=== PATIENT | female | born 1950 | race Caucasian/White ===

== ENCOUNTER 2018-05-08 18:36 | Observation (INO) ==
[2018-05-08] MEDS ORDERED: 0.9 % Sodium Chloride 1,000 ML IVC ONE (19:15)
[2018-05-08] MEDS ORDERED: methylPREDNISolone 125 MG/2 ML VIAL IVP ONE (19:15)
[2018-05-08] MEDS ORDERED: Ipratropium/Albuterol Neb 3 ML IH ONE (19:15)
--- NOTE | 2018-05-08 19:19 | Emergency Department Note ---
Disposition Clinical Impression: Acute exacerbation of chronic obstructive airways disease, Bronchospasm, Failure of outpatient treatment Disposition: Admitted As Inpatient Condition: Fair Referrals: Mayra Chino MD [Primary Care Provider] - Forms: ED Satisfaction Letter Time of Disposition: 20:27 SOB HPI - General Chief Complaint: ED Shortness of Breath/Dyspnea Stated Complaint: SOB Time Seen by Provider: 05/08/18 19:07 Source: patient Mode of arrival: private vehicle Limitations: no limitations Nursing Notes Reviewed: Yes Vital Signs Reviewed: Yes - History of Present Illness Pt Subjective Complaint: shortness of breath Onset (ago): week(s) (Little over a week) Context: recent illness (Patient treated herself for what she thought was bronchitis week ago. She took a Z-Chris and Medrol Dosepak. She says she had a little bit better and then things got worse again. Now she short of breath and wheezing and he keeps getting worse.) Severity: severe Consistency/Duration: gradually worsening Improves with: bronchodilators (Only briefly) Worsens with: exertion, coughing Known history of: COPD (And continues to smoke) Associated symptoms: Reports: cough, wheezing. Denies: chest pain, fever, sputum production Cough present: Yes Cough Description: Non-Productive Cough Frequency: Intermittent - Related Data Home Medications Medication Instructions Recorded Confirmed Albuterol Inhaler 2 puff IN Q4H PRN 11/05/15 05/08/18 Roflumilast [Daliresp] 500 mg PO DAILY 11/05/15 05/08/18 Singulair 10 mg PO DAILY 11/05/15 05/08/18 Symbicort 160/4.5 1 puff IH BID 11/05/15 05/08/18 Omeprazole 20 mg PO DAILY 10/30/16 05/08/18 Previous Rx's Medication Instructions Recorded Albuterol Sulfate [Albuterol 2 puff IH QID 2 Days inhaler 11/05/15 Inhaler] Ipratropium Neb [Atrovent Neb] 0.5 mg IH Q6HR #30 vial.neb 02/15/16 Allergies Allergy/AdvReac Type Severity Reaction Status Date / Time No Known Allergies Allergy Verified 05/08/18 18:46 All systems ED: reviewed and negative except as stated. Constitutional: Denies: fever, chills ENT ED: Reports: congestion (Mild congestion). Denies: ear pain, throat pain Cardiovascular: Denies: chest pain, palpitations Respiratory: Reports: cough, dyspnea, wheezes Gastrointestinal: Denies: abdominal pain, nausea, vomiting, diarrhea Musculoskeletal: Denies: back pain Integumentary: Denies: rash Neurological: Denies: headache Past Medical History - Past Medical History Attestation: Yes The following information was validated with the patient. Source: patient, old records reviewed, nursing notes reviewed Medical history: Reports: asthma, COPD, GERD Psychiatric history: Reports: no psych history COAGULATOR history: Reports: bilateral tubal ligation - Social History Smoking Status: Current every day smoker Smokeless Tobacco Status: No Alcohol use: Reports: none Drug use: Reports: none Physical Exam - General Limitations: no limitations General appearance: alert, in distress (Tachypneic with audible wheezing that I hear from the foot of the bed) - Head Head exam: atraumatic, normocephalic, normal inspection - Eye Eye exam: Present: normal appearance, PERRL, EOMI. Absent: scleral icterus, conjunctival injection - ENT ENT exam: normal exam, normal oropharynx, mucous membranes moist, TM's normal bilaterally, normal external ear exam - Neck Neck exam: Present: normal inspection, full ROM, trachea midline. Absent: meningismus - Chest Chest inspection: Present: normal inspection, symmetric chest wall rise. Absent: tenderness - Respiratory Respiratory exam: Present: wheezes (Diffuse wheezing throughout and nonfocal distribution.), prolonged expiratory phase. Absent: accessory muscle use - Cardiovascular Cardiovascular exam: Present: regular rate, normal rhythm, normal heart sounds - Abdominal Exam Abdominal exam: Present: soft, Non-Tender, normal bowel sounds - Extremities Exam Extremities exam: Present: normal inspection. Absent: pedal edema - Neurological Exam Neurological exam: Present: alert, oriented X3 - Psychiatric Psychiatric exam: Present: normal affect, normal mood - Skin Skin exam: Present: warm, dry. Absent: rash Course Course Narrative: Patient presents with complaint of shortness of breath. Antibiotics and steroids a week ago for what she thought was a bronchitis. Finished those a couple days ago and really has not gotten any relief. She short of breath with exertion at home. Lots of coughing and wheezing despite using her home aerosol machine. She arrives emergency Department with a low O2 sat. She is not on home oxygen. This description is a failure of outpatient treatment and a patient who has an oxygen requirement. She is going to need to be admitted to the hospital. I will get short of breath workup going and get her some breathing treatments and steroids. Disposition will be based on diagnostic results and reevaluation. - Reevaluation(s) Reevaluation #1: Patient does feel better after breathing treatments. She still has wheezing. I feel that she is related to the hospital because she is failed outpatient treatment and has an oxygen requirement. I will talk to the hospitalist and arrange admission. Time: 20:26 Vital Signs Temperature 98.5 F 05/08/18 18:37 Pulse Rate 92 05/08/18 18:37 Respiratory Rate 30 05/08/18 18:37 Blood Pressure 140/80 05/08/18 18:37 O2 Sat by Pulse Oximetry 99 05/08/18 18:37 Temperature 98.5 F 05/08/18 18:56 Pulse Rate 90 05/08/18 19:58 Respiratory Rate 24 05/08/18 19:58 Blood Pressure 140/78 05/08/18 19:58 O2 Sat by Pulse Oximetry 97 05/08/18 19:58 Oxygen Delivery Oxygen Delivery Nasal Cannula Shortness of Breath/Dyspnea - Medical Records Medical records reviewed: Yes I reviewed the patient's medical records. - Lab Data Lab results reviewed: Yes I reviewed the patient's lab results. Result diagrams: 05/08/18 19:45 05/08/18 19:45 Lab Results 05/08/18 05/08/18 05/08/18 Range/Units 19:45 19:45 19:45 WBC 14.2 H (4.3-11.1) K/mcL RBC 4.33 (3.82-4.97) M/mcL Hgb 13.1 (11.5-15.4) g/dL Hct 39.4 (35.3-44.9) % MCV 91.0 (83.0-100.0) fL MCH 30.3 (28.0-33.3) pg MCHC 33.2 (31.6-35.5) g/dL RDW 13.2 (11.5-14.5) % Plt Count 260 (140-400) K/mcL MPV 9.3 L (9.4-12.4) fL Immature Gran % 0.4 (0-4) % Seg Neutrophils % 53.4 % Lymphocytes % 31.9 % Monocytes % 9.9 % Eosinophils % 3.7 % Basophils % 0.7 % Neutrophils # 7.6 (1.6-8.9) K/mcL Lymphocytes # 4.5 (0.6-4.6) K/mcL Monocytes # 1.4 H (0.0-1.3) K/mcL Eosinophils # 0.5 (0.0-0.6) K/mcL Basophils # 0.1 (0.0-0.2) K/mcL Sample Site ABG pH (7.32-7.45) pH Units ABG pCO2 (35-45) mmHg ABG pO2 (85-104) mmHg ABG HCO3 (21-27) mEq/L ABG Total CO2 (20-26) mEq/L ABG O2 Saturation (95-98) % ABG Base Excess (-2 to 3) mEq/L Keo Test O2 Delivery Device Inspired O2 (1-15=lpm qf29-640=%) Sodium 138 (136-145) mEq/L Potassium 4.0 (3.5-5.1) mEq/L Chloride 103 (98-107) mEq/L Carbon Dioxide 28 (23-29) mEq/L BUN 13 (8-23) mg/dL Creatinine 0.72 (0.60-1.20) mg/dL Est GFR ( Amer) > 60 (> 60) Est GFR (Non-Af Amer) > 60 (> 60) BUN/Creatinine Ratio 18 (6-26) Glucose 88 (70-105) mg/dL Calculated Osmolality 286 (280-300) Lactic Acid 1.3 (0.5-2.2) mmol/L Calcium 8.9 (8.6-10.3) mg/dL Troponin I < 0.03 (< 0.04) ng/mL B-Natriuretic Peptide (Less than 100) pg/mL 05/08/18 05/08/18 Range/Units 19:45 19:46 WBC (4.3-11.1) K/mcL RBC (3.82-4.97) M/mcL Hgb (11.5-15.4) g/dL Hct (35.3-44.9) % MCV (83.0-100.0) fL MCH (28.0-33.3) pg MCHC (31.6-35.5) g/dL RDW (11.5-14.5) % Plt Count (140-400) K/mcL MPV (9.4-12.4) fL Immature Gran % (0-4) % Seg Neutrophils % % Lymphocytes % % Monocytes % % Eosinophils % % Basophils % % Neutrophils # (1.6-8.9) K/mcL Lymphocytes # (0.6-4.6) K/mcL Monocytes # (0.0-1.3) K/mcL Eosinophils # (0.0-0.6) K/mcL Basophils # (0.0-0.2) K/mcL Sample Site R Radial ABG pH 7.39 (7.32-7.45) pH Units ABG pCO2 45 (35-45) mmHg ABG pO2 97 (85-104) mmHg ABG HCO3 27 (21-27) mEq/L ABG Total CO2 28 H (20-26) mEq/L ABG O2 Saturation 97 (95-98) % ABG Base Excess 2 (-2 to 3) mEq/L Keo Test Positive O2 Delivery Device Cannula Inspired O2 2.0 (1-15=lpm fn31-415=%) Sodium (136-145) mEq/L Potassium (3.5-5.1) mEq/L Chloride (98-107) mEq/L Carbon Dioxide (23-29) mEq/L BUN (8-23) mg/dL Creatinine (0.60-1.20) mg/dL Est GFR ( Amer) (> 60) Est GFR (Non-Af Amer) (> 60) BUN/Creatinine Ratio (6-26) Glucose (70-105) mg/dL Calculated Osmolality (280-300) Lactic Acid (0.5-2.2) mmol/L Calcium (8.6-10.3) mg/dL Troponin I (< 0.04) ng/mL B-Natriuretic Peptide 24 (Less than 100) pg/mL - Radiology Data Radiology results reviewed: Yes I reviewed the patient's radiology results. - EKG Data EKG attestation: Yes I reviewed and interpreted this EKG. EKG results narrative: Twelve-lead EKG performed at 1927 ordered reviewed and interpreted by ED physician shows sinus rhythm at a rate of 82. Normal axis. Good R progression across precordium. No acute ischemic changes. Intervals are within normal limits.
[2018-05-08 19:49] LABS: ABG Base Excess 2 mEq/L (-2 to 3); ABG HCO3 27 mEq/L (21-27); ABG Oxygen Saturation 97 % (95-98); ABG PCO2 45 mmHg (35-45); ABG PH 7.39 pH Units (7.32-7.45); ABG PO2 97 mmHg (85-104); ABG TCO2 28 mEq/L (20-26)
[2018-05-08 19:52] LABS: Basophils # 0.1 K/mcL (0.0-0.2); Basophils % 0.7 %; Eosinophils # 0.5 K/mcL (0.0-0.6); Eosinophils % 3.7 %; Hematocrit 39.4 % (35.3-44.9); Hemoglobin 13.1 g/dL (11.5-15.4); Immature Granulocytes % 0.4 % (0-4); Lymphocytes # 4.5 K/mcL (0.6-4.6); Lymphocytes % 31.9 %; Mean Corpuscular HGB Conc 33.2 g/dL (31.6-35.5); Mean Corpuscular Hemoglobin 30.3 pg (28.0-33.3); Mean Platelet Volume 9.3 fL (9.4-12.4); Monocytes # 1.4 K/mcL (0.0-1.3); Monocytes % 9.9 %; Neutrophils # 7.6 K/mcL (1.6-8.9); Platelet Count 260 K/mcL (140-400); Red Blood Count 4.33 M/mcL (3.82-4.97); Red Cell Distribution Width 13.2 % (11.5-14.5); Segmented Neutrophils % 53.4 %
[2018-05-08 20:11] LABS: BUN/Creatinine Ratio 18 (6-26); Blood Urea Nitrogen 13 mg/dL (8-23); Calcium 8.9 mg/dL (8.6-10.3); Carbon Dioxide 28 mEq/L (23-29); Chloride 103 mEq/L (98-107); Glucose 88 mg/dL (70-105); Osmolality,Calculated 286 (280-300); Sodium 138 mEq/L (136-145); eGFR For Non-African Americans > 60 (> 60)
[2018-05-08 20:12] LABS: Troponin I < 0.03 ng/mL (< 0.04)
[2018-05-08] MEDS ORDERED: MethylPREDNISolone 40 MG/ML VIAL IVP ONE (21:26)
[2018-05-08] MEDS ORDERED: Naloxone 0.4 MG/ML INJ IVP PRN (21:26)
[2018-05-08] MEDS: Ipratropium/Albuterol Neb 3 ML IH SCH ×3 (21:48→22:26)
[2018-05-08] MEDS ORDERED: Budesonide/Formoterol 160/4.5 1 PUFF INH IH SCH (22:00)
[2018-05-09] MEDS: 0.9 % Sodium Chloride 1,000 ML IVC SCH ×2 (00:10→09:22)
[2018-05-09] MEDS: methylPREDNISolone 125 MG/2 ML VIAL IVP SCH ×3 (03:49→18:00)
[2018-05-09] MEDS ORDERED: DALIRESP 500 MCG PO SCH (09:00)
--- NOTE | 2018-05-09 09:50 | Internal Med History&Physical ---
Date of Encounter: 05/09/18 Time of Encounter: 09:15 Assessment and Plan (1) Acute exacerbation of chronic obstructive airways disease Current visit: Yes Status: Acute She was started on IV steroids in emergency room. Chest CT will be done to further evaluate. Internal Medicine - H&P: HPI Chief complaint: Cough and dyspnea Admitted From: Emergency Dept Plans for Post Hospital Care: Home History of present illness: Ms. Paiz is a 67 year old female who came to emergency room stating she had cough onset approximately one week earlier. It was productive of scant amount of yellow sputum. She denies fevers chills or hemoptysis. She developed dyspnea approximately 2-3 days later which waxed and waned over the next few days. She took a Z-Chris she had on hand May 02- with little improvement. She came to the emergency room and was evaluated and felt to have exacerbation of COPD. She was admitted to [facility] floor for ongoing care needs. Her respiratory history is significant for smoking since age 15 up to one pack per day. She reports PFTs done approximately 2010 showed COPD. She does not use home oxygen and has not been tested for sleep apnea. Past Med Surg Social Fam HX - Past Medical History Medical history: asthma, COPD, GERD Psychiatric history: no psych history - Past Surgical History Additional surgical history: Tubal ligation, Gum surgery 6 months ago - Social History Smoking Status: Current every day smoker Smokeless Tobacco Status: No Alcohol use: none Drug use: none Internal Medicine - H&P: Meds Albuterol Inhaler 2 puff IN Q4H PRN 11/05/15 [History] Albuterol Sulfate [Albuterol Inhaler] 2 puff IH QID 2 Days inhaler 11/05/15 [Rx] Roflumilast [Daliresp] 500 mg PO DAILY 11/05/15 [History] Singulair 10 mg PO DAILY 11/05/15 [History] Symbicort 160/4.5 1 puff IH BID 11/05/15 [History] Ipratropium Neb [Atrovent Neb] 0.5 mg IH Q6HR #30 vial.neb 02/15/16 [Rx] Omeprazole 20 mg PO DAILY 10/30/16 [History] Allergy/AdvReac Type Severity Reaction Status Date / Time No Known Allergies Allergy Verified 05/08/18 18:46 All Systems PM: A 10-system review of systems was performed and is negative for pertinent findings except as documented above in the HPI. Review of systems: Gen.: She states her weight has increased proximates 7 pounds in the past year Cardiovascular: She denies hypertension MS heart failure angina DVT or pulmonary embolus. She states an EST 2015 showed no ischemia. Respiratory: As per history of present illness GI: She denies disorders of her liver gallbladder or exocrine pancreas : She denies hematuria dysuria or kidney stones Neurologic: She denies large distribution strokes or seizures. Endocrine: She denies diabetes thyroid disease or hyperlipidemia Hematology/oncology: She denies blood disorders cancers or anemia Psychiatric: She has seasonal affective disorder. She denies other mental health diagnoses. [place] skeletal: She has DJD but denies gout or other bone joint or muscle diso rders. - Constitutional Vitals: Temp Pulse Resp BP Pulse Ox 98.2 F 86 17 120/69 98 05/09/18 06:57 05/09/18 06:57 05/09/18 06:57 05/09/18 06:57 05/09/18 09:18 Exam: Gen.: She is a well-developed well-nourished female lying in bed who appears slightly dyspneic HEENT: Head is atraumatic and normocephalic. Eyes: EOMI. There is no scleral icterus. Mouth: Mucosa is moist. Neck: Supple and nontender. There is no thyromegaly or adenopathy noted. Heart: Regular without murmurs gallops or ectopics. Rate is approximate 96/m. Lungs: She has prolonged expiratory phase and mild diffuse wheezing. Abdomen: Soft and nontender. No masses or guarding are noted. Extremities: There is no cyanosis edema or clubbing noted. Dorsalis pedis and posterior tibial pulses are 1-2 over 2 bilaterally. Neurologic: Mental status: She is talkative and a good historian. Cranial nerves: Smile is symmetric. Forehead wrinkles bilaterally. Tongue protrudes midline. EOMI. Motor: There is no pronator drift. Cerebellar: Finger to nose is intact bilaterally. Skin: Warm and dry Internal Med - H&P Results - Labs CBC & Chem 7: 05/08/18 19:45 05/08/18 19:45 Labs: Short CBC 05/08/18 Range/Units 19:45 WBC 14.2 H (4.3-11.1) K/mcL Hgb 13.1 (11.5-15.4) g/dL Hct 39.4 (35.3-44.9) % Plt Count 260 (140-400) K/mcL Neutrophils # 7.6 (1.6-8.9) K/mcL BMP 05/08/18 19:45 Sodium 138 Potassium 4.0 Chloride 103 Carbon Dioxide 28 BUN 13 Creatinine 0.72 Glucose 88 Calcium 8.9 Cardiac Enzymes 05/08/18 Range/Units 19:45 Troponin I < 0.03 (< 0.04) ng/mL - ABG Interpretation ABG results: 05/08/18 19:46 ABG pH 7.39 ABG pCO2 45 ABG pO2 97 ABG HCO3 27 ABG Total CO2 28 H ABG O2 Saturation 97 ABG Base Excess 2 - Impressions ITS Impressions Chest X-Ray 05/08/18 19:15 IMPRESSION: No acute pulmonary process. D/ / Daniel Douglas / Daniel Douglas Interpreting Provider: Daniel Douglas
[2018-05-09] MEDS ORDERED: Budesonide/Formoterol 160/4.5 1 PUFF INH IH SCH (10:00)
[2018-05-09] MEDS: Albuterol 2.5 MG/3 ML NEBULIZER IH PRN ×3 (10:19→22:01)
[2018-05-09] MEDS: Tiotropium 18 MCG inhalation IH SCH (10:19)
[2018-05-09] MEDS: Budesonide/Formoterol 160/4.5 1 PUFF INH IH SCH (22:10)
[2018-05-10] MEDS: methylPREDNISolone 125 MG/2 ML VIAL IVP SCH (03:30)
[2018-05-10 06:50] VITALS: BP 116/70
[2018-05-10 06:58] LABS: Hematocrit 36.8 % (35.3-44.9); Hemoglobin 12.1 g/dL (11.5-15.4); Mean Corpuscular HGB Conc 32.9 g/dL (31.6-35.5); Mean Corpuscular Hemoglobin 30.3 pg (28.0-33.3); Mean Platelet Volume 9.7 fL (9.4-12.4); Platelet Count 254 K/mcL (140-400); Red Cell Distribution Width 13.5 % (11.5-14.5)
[2018-05-10 07:39] LABS: Large Platelets Present (Not Present); Neutrophils # 24.4 K/mcL (1.6-8.9); Platelet Estimate Normal (Normal); Toxic Granulation Present (Not Present)
--- NOTE | 2018-05-10 09:25 | Discharge Summary ---
Orders not resulted at time of discharge: Pending orders 05/08/18 19:15 ECG 12 lead ECG [ECG] Stat 05/08/18 19:45 Culture,Blood [BC] Stat Date of Encounter: 05/10/18 Time of Encounter: 09:15 - Discharge Diagnosis (1) Acute exacerbation of chronic obstructive airways disease Priority: Primary Status: Acute Hospital course: Ms. Paiz is a 67 year old female who came to emergency room stating she had cough onset approximately one week earlier. It was productive of scant amount of yellow sputum. She denies fevers chills or hemoptysis. She developed dyspnea approximately 2-3 days later which waxed and waned over the next few days. She took a Z-Chris she had on hand May 02 with little improvement. She came to the emergency room and was evaluated and felt to have exacerbation of COPD. She was admitted to [facility] floor for ongoing care needs. Initial orders were written by the emergency room physician. I saw her on May 09 and performed the history and physical. She was given IV steroids in emergency room. I ordered chest CT to further evaluate. The CT showed no acute process. There was mild central lobular emphysema changes and 2 small nodules in the right upper lobe unchanged from 2014. Follow-up lab work on May 10 showed WBC increased to 25.4 with 92 % segs and 4% bands. She remained afebrile however and felt improved overall. She wished to be discharged home. She will receive antibiotics and probiotic for 5 additional days at discharge. Room air oximetry be checked on 6 minute walk prior to discharge. I strongly encouraged her to become a nonsmoker. She will follow with her PCP Dr. Chino within 1 week. - Time Spent with Patient Total time spent providing and/or coordinating discharge services: - Discharge Medications Prescriptions: Amoxicillin/Clavulanate [Augmentin] 875 mg PO BIDWM #10 tablet Lactobacillus [Culturelle] 1 each PO BID #10 cap.sprink Home Medications: Albuterol Inhaler 2 puff IN Q4H PRN 11/05/15 [History] Albuterol Sulfate [Albuterol Inhaler] 2 puff IH QID 2 Days inhaler 11/05/15 [Rx] Roflumilast [Daliresp] 500 mg PO DAILY 11/05/15 [History] Singulair 10 mg PO DAILY 11/05/15 [History] Symbicort 160/4.5 1 puff IH BID 11/05/15 [History] Ipratropium Neb [Atrovent Neb] 0.5 mg IH Q6HR #30 vial.neb 02/15/16 [Rx] Omeprazole 20 mg PO DAILY 10/30/16 [History] Amoxicillin/Clavulanate [Augmentin] 875 mg PO BIDWM #10 tablet 05/10/18 [Rx] Lactobacillus [Culturelle] 1 each PO BID #10 cap.sprink 05/10/18 [Rx] Allergies/Adverse Reactions: Allergy/AdvReac Type Severity Reaction Status Date / Time No Known Allergies Allergy Verified 05/08/18 18:46 Date of admission: 05/08/18 20:38 Primary care physician: Mayra Chino - Constitutional Vitals: Temp Pulse Resp BP Pulse Ox 98.0 F 86 17 116/70 96 05/10/18 06:46 05/10/18 06:46 05/10/18 06:46 05/10/18 06:46 05/10/18 06:46 - Patient Status Disposition: Home, Self-Care Condition: Fair - Discharge Instructions Follow Up With: Mayra Chino MD [Primary Care Provider] - 1 week - Diet and Activity Activity: resume usual activities as tolerated Diet: advance to your usual diet
[2018-05-10] MEDS: Budesonide/Formoterol 160/4.5 1 PUFF INH IH SCH (09:47)
[2018-05-10] MEDS: Tiotropium 18 MCG inhalation IH SCH (09:47)
[2018-05-10] MEDS: Albuterol 2.5 MG/3 ML NEBULIZER IH PRN (09:48)
--- NOTE | 2018-05-11 15:28 | Electrocardiograph Report ---
[address] [place], [place] [address] Test Date: 2018-05-08 Pat Name: Betzaida Paiz Department: [id number] Room: [facility] Gender: F Spacer Type Bar And Segment: Elena : 1950 Requested By: Nilo José Order Number: [id number] Reading MD: Shanda Marcos Measurements Intervals [place] Rate: 82 P: 74 AK: 127 QRS: 57 QRSD: 74 T: 55 QT: 355 QTc: 394 Interpretive Statements SINUS RHYTHM Electronically Signed On 05-11-2018 15:26:15 EST by Shanda Marcos
== END 2018-05-10 11:41 | disposition home or self-care (01) ==
LOC: INPPIK 18:36 → EMEROOPIK 18:36 → INPPIK 21:09
PROVIDERS: ADMIT Emergency Medicine; ATTEND Internal Medicine

== ENCOUNTER 2018-09-16 20:17 | Observation (INO) ==
--- NOTE | 2018-09-16 20:27 | Emergency Department Note ---
Disposition Clinical Impression: Acute exacerbation of chronic obstructive airways disease Disposition: Admitted As Inpatient Condition: Good Referrals: Mayra Chino MD [Primary Care Provider] - Forms: ED Satisfaction Letter Time of Disposition: 22:26 SOB HPI - General Chief Complaint: ED Shortness of Breath/Dyspnea Stated Complaint: SOB Time Seen by Provider: 09/16/18 20:27 Source: patient Mode of arrival: ambulatory Limitations: no limitations Nursing Notes Reviewed: Yes Vital Signs Reviewed: Yes - History of Present Illness 67-year-old female who presents today with a COPD exacerbation. States she has had shortness of breath for about a week now. She says low-grade fever at home. Nonproductive cough. History of COPD. She has not been on steroids or antibiotics recently. She has had a be hospitalized in the past for her breathing. Pt Subjective Complaint: shortness of breath - Related Data Home Medications Medication Instructions Recorded Confirmed Albuterol Inhaler 2 puff IN Q4H PRN 11/05/15 05/08/18 Roflumilast [Daliresp] 500 mg PO DAILY 11/05/15 05/08/18 Singulair 10 mg PO DAILY 11/05/15 05/08/18 Symbicort 160/4.5 1 puff IH BID 11/05/15 05/08/18 Omeprazole 20 mg PO DAILY 10/30/16 05/08/18 Previous Rx's Medication Instructions Recorded Albuterol Sulfate [Albuterol 2 puff IH QID 2 Days inhaler 11/05/15 Inhaler] Ipratropium Neb [Atrovent Neb] 0.5 mg IH Q6HR #30 vial.neb 02/15/16 Amoxicillin/Clavulanate [Augmentin] 875 mg PO BIDWM #10 tablet 05/10/18 Lactobacillus [Culturelle] 1 each PO BID #10 cap.sprink 05/10/18 Allergies Allergy/AdvReac Type Severity Reaction Status Date / Time No Known Allergies Allergy Verified 05/08/18 18:46 Review of Systems: All other systems are negative except as noted/marked Chart generated with voice recognition software Nursing notes reviewed Old records reviewed Past Medical History - Past Medical History Attestation: Yes The following information was validated with the patient. 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 - Social History Smoking Status: Current every day smoker Smokeless Tobacco Status: No Alcohol use: Reports: none Drug use: Reports: none Physical Exam General: Mild distress, VSS Head: normocephalic, atraumatic Eyes: EOMI, PERRLA mouth: moist mucous membranes Neck: NO CLA, Supple Chest wall: normal rise, no crepitus, no deformity noted Lungs: Diminished lung sounds with wheezing, accessory muscle use for breathing Heart: RRR, no murmur Abd: soft, nontender, BS normal : deferred MSK: strength equal in all four extremities Ext: moves all four extremities, no obvious deformities Skin: cap refill normal, warm, dry neuro : CN2-12 grossly intact, A&Ox3 Psych: normal affect, not anxious - General General appearance: alert Course Vital Signs Temperature 98.5 F 09/16/18 20:19 Pulse Rate 98 09/16/18 20:19 Respiratory Rate 20 09/16/18 20:19 Blood Pressure 141/80 09/16/18 20:19 O2 Sat by Pulse Oximetry 95 09/16/18 20:19 Temperature 98.5 F 09/16/18 20:19 Pulse Rate 104 09/16/18 22:02 Respiratory Rate 24 09/16/18 22:02 Blood Pressure 130/64 09/16/18 22:02 O2 Sat by Pulse Oximetry 93 09/16/18 22:02 Oxygen Delivery Oxygen Delivery Nasal Cannula Shortness of Breath/Dyspnea - MDM Narrative Medical decision making narrative: 67-year-old female who presents today with a COPD exacerbation. She had a DuoNeb and 2 albuterol is on arrival was some IV fluids and steroids. She state s she is feeling a little bit better at this time. She still looks like short, hard to breathe. I ordered some magnesium for her as well as 2 more albuterol treatments. A chest x-ray is clear her lab work is unremarkable. Patient does not appear in any distress other than just having increased work of breathing at this time. 2199 after repeat breathing treatments and some magnesium patient looks like she is feeling a little bit better however she still requiring oxygen to maintain her sats at this time. 2229 patient still requiring oxygen and slightly tachycardic. It still looks somewhat uncomfortable with her breathing. At this point think it would be in her best interest to be admitted overnight for pulmonary toilet. I spoke with Dr. Bojorquez who accepted the patient. - Medical Records Medical records reviewed: Yes I reviewed the patient's medical records. - Lab Data Lab results reviewed: Yes I reviewed the patient's lab results. Result diagrams: 09/16/18 21:01 09/16/18 21: Lab Results 09/16/18 09/16/18 09/16/18 Range/Units 21: 21: 21: WBC 8.7 (4.3-11.1) K/mcL RBC 4.70 (3.82-4.97) M/mcL Hgb 14.1 (11.5-15.4) g/dL Hct 42.8 (35.3-44.9) % MCV 91.1 (83.0-100.0) fL MCH 30.0 (28.0-33.3) pg MCHC 32.9 (31.6-35.5) g/dL RDW 12.8 (11.5-14.5) % Plt Count 241 (140-400) K/mcL MPV 9.4 (9.4-12.4) fL Immature Gran % 0.2 (0-4) % Seg Neutrophils % 64.3 % Lymphocytes % 20.7 % Monocytes % 10.2 % Eosinophils % 3.6 % Basophils % 1.0 % Neutrophils # 5.6 (1.6-8.9) K/mcL Lymphocytes # 1.8 (0.6-4.6) K/mcL Monocytes # 0.9 (0.0-1.3) K/mcL Eosinophils # 0.3 (0.0-0.6) K/mcL Basophils # 0.1 (0.0-0.2) K/mcL PT 11.3 (9.4-12.1) Seconds INR 1.0 APTT 37.0 H (26.0-36.0) Seconds Sample Site ABG pH (7.32-7.45) pH Units ABG pCO2 (35-45) mmHg ABG pO2 (85-104) mmHg ABG HCO3 (21-27) mEq/L ABG Total CO2 (20-26) mEq/L ABG O2 Saturation (95-98) % ABG Base Excess (-2 to 3) mEq/L Keo Test O2 Delivery Device Inspired O2 (1-15=lpm [id number]=%) Sodium 137 (136-145) mEq/L Potassium 3.6 (3.5-5.1) mEq/L Chloride 103 (98-107) mEq/L Carbon Dioxide 28 (23-29) mEq/L BUN 21 (8-23) mg/dL Creatinine 0.80 (0.60-1.20) mg/dL Est GFR ( Amer) > 60 (> 60) Est GFR (Non-Af Amer) > 60 (> 60) BUN/Creatinine Ratio 26 (6-26) Glucose 82 (70-105) mg/dL Calculated Osmolality 286 (280-300) Lactic Acid (0.5-2.2) mmol/L Calcium 9.4 (8.6-10.3) mg/dL Magnesium 2.1 (1.6-2.6) mg/dL Troponin I < 0.03 (< 0.04) ng/mL B-Natriuretic Peptide (Less than 100) pg/mL 09/16/18 09/16/18 09/16/18 Range/Units 21:01 21:01 21:06 WBC (4.3-11.1) K/mcL RBC (3.82-4.97) M/mcL Hgb (11.5-15.4) g/dL Hct (35.3-44.9) % MCV (83.0-100.0) fL MCH (28.0-33.3) pg MCHC (31.6-35.5) g/dL RDW (11.5-14.5) % Plt Count (140-400) K/mcL MPV (9.4-12.4) fL Immature Gran % (0-4) % Seg Neutrophils % % Lymphocytes % % Monocytes % % Eosinophils % % Basophils % % Neutrophils # (1.6-8.9) K/mcL Lymphocytes # (0.6-4.6) K/mcL Monocytes # (0.0-1.3) K/mcL Eosinophils # (0.0-0.6) K/mcL Basophils # (0.0-0.2) K/mcL PT (9.4-12.1) Seconds INR APTT (26.0-36.0) Seconds Sample Site R Radial ABG pH 7.40 (7.32-7.45) pH Units ABG pCO2 40 (35-45) mmHg ABG pO2 78 L (85-104) mmHg ABG HCO3 25 (21-27) mEq/L ABG Total CO2 26 (20-26) mEq/L ABG O2 Saturation 95 (95-98) % ABG Base Excess 0 (-2 to 3) mEq/L Keo Test Positive O2 Delivery Device Cannula Inspired O2 2.0 (1-15=lpm [id number]=%) Sodium (136-145) mEq/L Potassium (3.5-5.1) mEq/L Chloride (98-107) mEq/L Carbon Dioxide (23-29) mEq/L BUN (8-23) mg/dL Creatinine (0.60-1.20) mg/dL Est GFR ( Amer) (> 60) Est GFR (Non-Af Amer) (> 60) BUN/Creatinine Ratio (6-26) Glucose (70-105) mg/dL Calculated Osmolality (280-300) Lactic Acid 0.9 (0.5-2.2) mmol/L Calcium (8.6-10.3) mg/dL Magnesium (1.6-2.6) mg/dL Troponin I (< 0.04) ng/mL B-Natriuretic Peptide 18 (Less than 100) pg/mL - Radiology Data Radiology results reviewed: Yes I reviewed the patient's radiology results. EXAMINATION: SINGLE XRAY VIEW OF THE CHEST 09/16/2018 9:13 pm COMPARISON: 05/08/2018 HISTORY: ORDERING SYSTEM PROVIDED HISTORY: dyspnea FINDINGS: Heart size and configuration are normal. The lungs are clear. No pneumothorax or pleural fluid. No acute bone finding. XR/XR chest 1V portable IMPRESSION: No acute cardiopulmonary disease. D/ / Juan Mireles MD / Juan Mireles MD Interpreting Provider: Juan Mireles MD - EKG Data EKG attestation: Yes I reviewed and interpreted this EKG. EKG results narrative: EKG interpreted by myself as sinus rhythm with rate of 98 [address] QTC [address] elevation
[2018-09-16] MEDS ORDERED: Ipratropium/Albuterol Neb 3 ML IH ONE (20:33)
[2018-09-16] MEDS ORDERED: 0.9 % Sodium Chloride 1,000 ML IVC ONE (20:33)
[2018-09-16] MEDS ORDERED: Albuterol 2.5 MG/3 ML NEBULIZER IH ONE ×2 (20:33→21:36)
[2018-09-16] MEDS ORDERED: methylPREDNISolone 125 MG/2 ML VIAL IVP ONE (20:33)
[2018-09-16 21:07] LABS: Basophils # 0.1 K/mcL (0.0-0.2); Eosinophils # 0.3 K/mcL (0.0-0.6); Eosinophils % 3.6 %; Hematocrit 42.8 % (35.3-44.9); Hemoglobin 14.1 g/dL (11.5-15.4); Immature Granulocytes % 0.2 % (0-4); Lymphocytes # 1.8 K/mcL (0.6-4.6); Lymphocytes % 20.7 %; Mean Corpuscular HGB Conc 32.9 g/dL (31.6-35.5); Mean Corpuscular Volume 91.1 fL (83.0-100.0); Mean Platelet Volume 9.4 fL (9.4-12.4); Monocytes # 0.9 K/mcL (0.0-1.3); Monocytes % 10.2 %; Neutrophils # 5.6 K/mcL (1.6-8.9); Platelet Count 241 K/mcL (140-400); Red Cell Distribution Width 12.8 % (11.5-14.5); Segmented Neutrophils % 64.3 %
[2018-09-16 21:09] LABS: ABG Base Excess 0 mEq/L (-2 to 3); ABG HCO3 25 mEq/L (21-27); ABG Oxygen Saturation 95 % (95-98); ABG PCO2 40 mmHg (35-45); ABG PO2 78 mmHg (85-104); ABG TCO2 26 mEq/L (20-26)
[2018-09-16 21:26] LABS: BUN/Creatinine Ratio 26 (6-26); Blood Urea Nitrogen 21 mg/dL (8-23); Calcium 9.4 mg/dL (8.6-10.3); Carbon Dioxide 28 mEq/L (23-29); Chloride 103 mEq/L (98-107); Glucose 82 mg/dL (70-105); Magnesium 2.1 mg/dL (1.6-2.6); Osmolality,Calculated 286 (280-300); Potassium 3.6 mEq/L (3.5-5.1); Sodium 137 mEq/L (136-145); Troponin I < 0.03 ng/mL (< 0.04); eGFR For Non-African Americans > 60 (> 60)
[2018-09-16 21:30] LABS: Prothrombin Time 11.3 Seconds (9.4-12.1)
[2018-09-16] MEDS ORDERED: Ondansetron 4 MG/2 ML VIAL IVP PRN (23:04)
[2018-09-16] MEDS ORDERED: Naloxone 0.4 MG/ML INJ IVP PRN (23:04)
[2018-09-16] MEDS ORDERED: Ipratropium/Albuterol Neb 3 ML IH PRN (23:04)
[2018-09-16] MEDS ORDERED: Mag Hydrox/Al Hydrox/Simeth 30 ML UDC PO PRN (23:04)
[2018-09-16] MEDS ORDERED: *HR* HYDROcodone/Acet 5/325 mg TABLET PO PRN (23:04)
[2018-09-16] MEDS ORDERED: MOM Conc 10 ML UD.LIQ PO PRN (23:04)
[2018-09-16] MEDS ORDERED: Albuterol 2.5 MG/3 ML NEBULIZER IH PRN (23:04)
[2018-09-16] MEDS ORDERED: Benzonatate 100 MG CAPSULE PO PRN (23:04)
[2018-09-16] MEDS ORDERED: Acetaminophen 325 MG TABLET PO PRN (23:04)
[2018-09-17 05:08] LABS: Basophils % 0.1 %; Hematocrit 39.7 % (35.3-44.9); Hemoglobin 13.2 g/dL (11.5-15.4); Immature Granulocytes % 0.3 % (0-4); Lymphocytes # 0.4 K/mcL (0.6-4.6); Lymphocytes % 4.8 %; Mean Corpuscular HGB Conc 33.2 g/dL (31.6-35.5); Mean Corpuscular Hemoglobin 30.1 pg (28.0-33.3); Mean Corpuscular Volume 90.6 fL (83.0-100.0); Mean Platelet Volume 9.4 fL (9.4-12.4); Monocytes # 0.2 K/mcL (0.0-1.3); Monocytes % 1.6 %; Neutrophils # 8.6 K/mcL (1.6-8.9); Platelet Count 238 K/mcL (140-400); Red Blood Count 4.38 M/mcL (3.82-4.97); Red Cell Distribution Width 12.9 % (11.5-14.5); Segmented Neutrophils % 93.2 %
[2018-09-17 06:55] LABS: BUN/Creatinine Ratio 24 (6-26); Blood Urea Nitrogen 16 mg/dL (8-23); Calcium 8.8 mg/dL (8.6-10.3); Carbon Dioxide 25 mEq/L (23-29); Chloride 108 mEq/L (98-107); Glucose 147 mg/dL (70-105); Magnesium 2.3 mg/dL (1.6-2.6); Osmolality,Calculated 294 (280-300); Potassium 4.5 mEq/L (3.5-5.1); Sodium 140 mEq/L (136-145); eGFR For Non-African Americans > 60 (> 60)
[2018-09-17] MEDS ORDERED: (Roflumilast [Daliresp] 500 MG) PO SCH (09:00)
--- NOTE | 2018-09-17 09:36 | Electrocardiograph Report ---
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
[2018-09-17 11:49] VITALS: BP 145/74
[2018-09-17] MEDS ORDERED: Budesonide/Formoterol 160/4.5 1 PUFF INH IH SCH (12:15)
--- NOTE | 2018-09-17 15:28 | Internal Med History&Physical ---
Date of Encounter: 09/17/18 Time of Encounter: 15:00 Assessment and Plan (1) Acute exacerbation of chronic obstructive airways disease Current visit: Yes Status: Acute She was given Solu-Medrol IV in emergency room and has received nebulizer treatments. Influenza testing was negative. She states she feels improved and stable for discharge home. Internal Medicine - H&P: HPI Chief complaint: Dyspnea Admitted From: Emergency Dept Plans for Post Hospital Care: Home History of present illness: Ms. Paiz is a 67 year old female who came to emergency room stating she had onset of dyspnea 08/18/2018. It worsened over the next 24 hours. She reports minimal cough with very low productivity. She has started to feel diffuse myalgias and arthralgias now. She denies vomiting or diarrhea. She was evaluated emergency room and felt to have exacerbation of COPD. She was admitted to [facility] floor for ongoing care needs. She states her breathing has improved since admission and she feels stable for discharge home. She was hospitalized last at [facility] May 2018 with exacerbation of COPD. Chest CT at that time did not show worrisome pathology. Her respiratory history is significant for smoking since age 15 up to one pack per day. She reports PFTs done approximately 2010 showed COPD. She does not use home oxygen and has not been tested for sleep apnea. Past Med Surg Social Fam HX - Past Medical History Medical history: asthma, COPD, GERD Psychiatric history: no psych history - Past Surgical History Additional surgical history: Tubal ligation, Gum surgery 6 months ago - Social History Smoking Status: Current every day smoker Packs per day: 0.25 Smokeless Tobacco Status: No Alcohol use: none Drug use: none - Family History Father Living Status: Hx Family Cardiac Disorders: Yes ([place]) Brother Living Status: Cause of : [place] Hx Family Cardiac Disorders: Yes ([place]) Internal Medicine - H&P: Meds Albuterol Inhaler 2 puff IN Q4H PRN 11/05/15 [History] Albuterol Sulfate [Albuterol Inhaler] 2 puff IH QID 2 Days inhaler 11/05/15 [Rx] Roflumilast [Daliresp] 500 mg PO DAILY 11/05/15 [History] Singulair 10 mg PO DAILY 11/05/15 [History] Symbicort 160/4.5 1 puff IH BID 11/05/15 [History] Ipratropium Neb [Atrovent Neb] 0.5 mg IH Q6HR #30 vial.neb 02/15/16 [Rx] Omeprazole 20 mg PO DAILY 10/30/16 [History] Amoxicillin/Clavulanate [Augmentin] 875 mg PO BIDWM #10 tablet 05/10/18 [Rx] Lactobacillus [Culturelle] 1 each PO BID #10 cap.sprink 05/10/18 [Rx] Allergy/AdvReac Type Severity Reaction Status Date / Time No Known Allergies Allergy Verified 05/08/18 18:46 All Systems PM: A 10-system review of systems was performed and is negative for pertinent findings except as documented above in the HPI. Review of systems: Review of systems from her May 2018 [facility] hospitalization were reviewed and revised as below. Gen.: Her weight has increased minimally from 59.874 kg on 05/08/2018 to present weight of 61.235 kg Cardiovascular: She denies hypertension [place] heart failure angina DVT or pulmonary embolus. She states an EST 2014 showed no ischemia. Respiratory: As per history of present illness GI: She denies disorders of her liver gallbladder or exocrine pancreas : She denies hematuria dysuria or kidney stones Neurologic: She denies large distribution strokes or seizures. Endocrine: She denies diabetes thyroid disease or hyperlipidemia Hematology/oncology: She denies blood disorders cancers or anemia Psychiatric: She has seasonal affective disorder. She denies other mental health diagnoses. [place] skeletal: She has DJD but denies gout or other bone joint or muscle disorders. - Constitutional Vitals: Temp Pulse Resp BP Pulse Ox 98.7 F 111 20 145/74 97 09/17/18 11:47 09/17/18 11:47 09/17/18 12:52 09/17/18 11:47 09/17/18 12:52 Exam: Gen.: She is a well-developed well-nourished female sitting on the side of bed who appears in minimal respiratory distress HEENT: Head is atraumatic and normocephalic. Eyes: EOMI. There is no scleral icterus. Mouth: Mucosa is moist. Neck: Supple and nontender. There is no thyromegaly or adenopathy noted. Heart: Regular with rate approximately 112/m. Lungs: No wheezes or crackles are heard. Abdomen: Soft and nontender. No masses or guarding are noted. Extremities: There is no cyanosis edema or clubbing noted. Dorsalis pedis and posttibial pulses are trace to 1+ palpable bilaterally. Neurologic: Mental status: She is talkative and a good historian. Cranial nerves: Smile is symmetric. Forehead wrinkles bilaterally. Tongue protrudes midline. EOMI. Motor: There is no pronator drift. Cerebellar: Finger to nose is intact bilaterally. Skin: Warm and dry Internal Med - H&P Results - Labs CBC & Chem 7: 09/17/18 04:54 09/17/18 04:54 Labs: Short CBC 09/16/18 09/17/18 Range/Units 21:01 04:54 WBC 8.7 9.3 (4.3-11.1) K/mcL Hgb 14.1 13.2 (11.5-15.4) g/dL Hct 42.8 39.7 (35.3-44.9) % Plt Count 241 238 (140-400) K/mcL Neutrophils # 5.6 8.6 (1.6-8.9) K/mcL BMP 09/16/18 09/17/18 21:01 04:54 Sodium 137 140 Potassium 3.6 4.5 Chloride 103 108 H Carbon Dioxide 28 25 BUN 21 16 Creatinine 0.80 0.67 Glucose 82 147 H Calcium 9.4 8.8 Cardiac Enzymes 09/16/18 Range/Units 21:01 Troponin I < 0.03 (< 0.04) ng/mL - ABG Interpretation ABG results: 09/16/18 21:06 ABG pH 7.40 ABG pCO2 40 ABG pO2 78 L ABG HCO3 25 ABG Total CO2 26 ABG O2 Saturation 95 ABG Base Excess 0 - Impressions ITS Impressions Chest X-Ray 09/16/18 20:33 IMPRESSION: No acute cardiopulmonary disease. D/ / Juan Mireles MD / Juan Mireles MD Interpreting Provider: Juan Mireles MD
--- NOTE | 2018-09-17 15:35 | Discharge Summary ---
Orders not resulted at time of discharge: Pending orders 09/16/18 20:34 Culture,Sputum with Gram Stain [RM] Stat 09/16/18 20:48 Culture,Blood [BC] Stat Date of Encounter: 09/17/18 Time of Encounter: 15:00 - Discharge Diagnosis (1) Acute exacerbation of chronic obstructive airways disease Priority: Primary Status: Acute Hospital course: Ms. Paiz is a 67 year old female who came to emergency room stating she had onset of dyspnea 08/18/2018. It worsened over the next 24 hours. She reports minimal cough with very low productivity. She has started to feel diffuse myalgias and arthralgias now. She denies vomiting or diarrhea. She was evaluated emergency room and felt to have exacerbation of COPD. She was admitted to [facility] for ongoing care needs. Initial orders were written by the emergency room physician. I saw her on September 17 and performed the history and physical. She was given IV Solu-Medrol in emergency room. Symbicort, duonebs, and albuterol nebs were ordered. She felt improved by the time I saw her the afternoon of September 17 and stable for discharge home. She specifically denied vomiting or diarrhea. I felt she likely had viral respiratory infection and could recover safely at home. She will remain off work until 09/21/2018. She will follow with her PCP Dr. Chino within 1 week. - Time Spent with Patient Total time spent providing and/or coordinating discharge services: - Discharge Medications Prescriptions: Continue Symbicort 160/4.5 1 puff IH BID Singulair 10 mg PO DAILY Albuterol Inhaler 2 puff IN Q4H PRN PRN Reason: Wheezing Albuterol Sulfate [Albuterol Inhaler] 2 puff IH QID 2 Days inhaler Ipratropium Neb [Atrovent Neb] 0.5 mg IH Q6HR #30 vial.neb Omeprazole 20 mg PO DAILY Discontinued Roflumilast [Daliresp] 500 mg PO DAILY Amoxicillin/Clavulanate [Augmentin] 875 mg PO BIDWM #10 tablet Lactobacillus [Culturelle] 1 each PO BID #10 cap.sprink Home Medications: Albuterol Inhaler 2 puff IN Q4H PRN 11/05/15 [History] Albuterol Sulfate [Albuterol Inhaler] 2 puff IH QID 2 Days inhaler 11/05/15 [Rx] Singulair 10 mg PO DAILY 11/05/15 [History] Symbicort 160/4.5 1 puff IH BID 11/05/15 [History] Ipratropium Neb [Atrovent Neb] 0.5 mg IH Q6HR #30 vial.neb 02/15/16 [Rx] Omeprazole 20 mg PO DAILY 10/30/16 [History] Allergies/Adverse Reactions: Allergy/AdvReac Type Severity Reaction Status Date / Time No Known Allergies Allergy Verified 05/08/18 18:46 Date of admission: 09/16/18 22:34 Primary care physician: Mayra Chino - Constitutional Vitals: Temp Pulse Resp BP Pulse Ox 98.7 F 111 20 145/74 97 09/17/18 11:47 09/17/18 11:47 09/17/18 12:52 09/17/18 11:47 09/17/18 12:52 - Patient Status Disposition: Home, Self-Care Condition: Good - Discharge Instructions Follow Up With: Mayra Chino MD [Primary Care Provider] - 1 week - Diet and Activity Activity: resume usual activities as tolerated Diet: advance to your usual diet
== END 2018-09-17 17:00 | disposition home or self-care (01) ==
LOC: EMEROOPIK 20:17 → INPPIK 20:17
PROVIDERS: ADMIT Internal Medicine; ATTEND Internal Medicine

== ENCOUNTER 2018-09-17 22:06 | Inpatient (IN) ==
[2018-09-17] MEDS ORDERED: methylPREDNISolone 125 MG/2 ML VIAL IVP ONE (22:16)
[2018-09-17] MEDS ORDERED: Ipratropium/Albuterol Neb 3 ML IH ONE (22:16)
--- NOTE | 2018-09-17 22:19 | Emergency Department Note ---
Disposition Clinical Impression: Acute exacerbation of chronic obstructive airways disease Disposition: Admitted As Inpatient Condition: Fair Referrals: Mayra Chino MD [Primary Care Provider] - Forms: ED Satisfaction Letter Time of Disposition: 00:31 SOB HPI - General Chief Complaint: ED Shortness of Breath/Dyspnea Stated Complaint: SOB/COPD EXACERBATION Time Seen by Provider: 09/17/18 22:12 Source: patient, EMS Mode of arrival: EMS Limitations: no limitations Nursing Notes Reviewed: Yes Vital Signs Reviewed: Yes - History of Present Illness Pt Subjective Complaint: shortness of breath Onset (ago): hour(s) Context: recent illness (Patient just got hospitalist afternoon for COPD exacerbation. So she got home she started having trouble again.) Severity: severe Consistency/Duration: constant Improves with: nothing Worsens with: exertion Known history of: COPD Associated symptoms: Reports: chest pain (Says her chest feels sore from coughing), cough. Denies: sputum production Treatment prior to arrival: oxygen Cough present: Yes Cough Description: Non-Productive Cough Frequency: Intermittent - Related Data Home Medications Medication Instructions Recorded Confirmed Albuterol Inhaler 2 puff IN Q4H PRN 11/05/15 05/08/18 Singulair 10 mg PO DAILY 11/05/15 05/08/18 Symbicort 160/4.5 1 puff IH BID 11/05/15 05/08/18 Omeprazole 20 mg PO DAILY 10/30/16 05/08/18 Previous Rx's Medication Instructions Recorded Albuterol Sulfate [Albuterol 2 puff IH QID 2 Days inhaler 11/05/15 Inhaler] Ipratropium Neb [Atrovent Neb] 0.5 mg IH Q6HR #30 vial.neb 02/15/16 Allergies Allergy/AdvReac Type Severity Reaction Status Date / Time No Known Allergies Allergy Verified 05/08/18 18:46 All systems ED: reviewed and negative except as stated. Constitutional: Denies: fever, chills ENT ED: Denies: ear pain, throat pain, congestion Cardiovascular: Reports: chest pain (Soreness), dyspnea on exertion. Denies: palpitations Respiratory: Reports: cough, dyspnea, wheezes Gastrointestinal: Denies: abdominal pain, nausea, vomiting, diarrhea Musculoskeletal: Denies: back pain Integumentary: Denies: rash Past Medical History - Past Medical History Attestation: Yes The following information was validated with the patient. 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 Absent: scleral icterus, conjunctival injection - ENT ENT exam: normal exam, normal oropharynx, mucous membranes moist, normal external ear exam - Neck Neck exam: Present: normal inspection, full ROM, trachea midline - Chest Chest inspection: Present: symmetric chest wall rise, tenderness (Mild tenderness), rash (COPD-appearing chest) - Respiratory Respiratory exam: Present: respiratory distress (Tachypneic with prolonged expiratory phase), wheezes - Cardiovascular Cardiovascular exam: Present: normal rhythm, tachycardia, normal heart sounds - Abdominal Exam Abdominal exam: Present: soft, Non-Tender - Extremities Exam Extremities exam: Present: normal inspection. Absent: pedal edema - Neurological Exam Neurological exam: Present: alert, oriented X3 - Psychiatric Psychiatric exam: Present: normal affect, normal mood - Skin Skin exam: Present: warm, dry. Absent: rash Course Course Narrative: Patient presents for shortness of breath and consistent with COPD exacerbation. She just hospital this afternoon and decompensated as soon as she got home. I will start COPD treatment again. Breathing treatments and steroids. She does not turn around probably she will clearly need to be admitted to the hospital. - Reevaluation(s) Reevaluation #1: Patient was not improving with just a breathing treatments and steroids. We went ahead and applied BiPAP. Looking at her it seems like it is helping. I had a conversation with her about noninvasive versus invasive treatment. 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 Time: 23:07 Reevaluation #2: Patient definitely improved on BiPAP. ABG is good. She is to be admitted to the hospital. I discussed the case with Dr. Bojorquez and he gave verbal orders get her admitted. Time: 00:31 - Consultations Consultation #1: Dr. Bojorquez, hospitalist - I discussed case with the hospice. He gave her was give the patient to the hospital. Time: 12:25 Vital Signs Temperature 98.9 F 09/17/18 22:08 Pulse Rate 98 09/17/18 22:08 Respiratory Rate 28 09/17/18 22:08 Blood Pressure 129/72 09/17/18 22:08 O2 Sat by Pulse Oximetry 93 09/17/18 22:08 Temperature 98.9 F 09/17/18 22:08 Pulse Rate 112 09/17/18 23:30 Respiratory Rate 20 09/17/18 23:30 Blood Pressure 114/74 09/17/18 23:30 O2 Sat by Pulse Oximetry 97 09/17/18 23:30 Oxygen Delivery Oxygen Delivery Bipap Shortness of Breath/Dyspnea - Medical Records Medical records reviewed: Yes I reviewed the patient's medical records. - Lab Data Lab results reviewed: Yes I reviewed the patient's lab results. Result diagrams: 09/17/18 22:27 09/17/18 22:27 Lab Results 09/17/18 09/17/18 09/17/18 Range/Units 22:27 22:27 22:27 WBC 14.9 H D (4.3-11.1) K/mcL RBC 4.59 (3.82-4.97) M/mcL Hgb 13.8 (11.5-15.4) g/dL Hct 41.3 (35.3-44.9) % MCV 90.0 (83.0-100.0) fL MCH 30.1 (28.0-33.3) pg MCHC 33.4 (31.6-35.5) g/dL RDW 13.0 (11.5-14.5) % Plt Count 241 (140-400) K/mcL MPV 9.2 L (9.4-12.4) fL Immature Gran % 0.4 (0-4) % Seg Neutrophils % 88.8 % Lymphocytes % 3.9 % Monocytes % 6.8 % Eosinophils % 0.0 % Basophils % 0.1 % Neutrophils # 13.2 H (1.6-8.9) K/mcL Lymphocytes # 0.6 (0.6-4.6) K/mcL Monocytes # 1.0 (0.0-1.3) K/mcL Eosinophils # 0.0 (0.0-0.6) K/mcL Basophils # 0.0 (0.0-0.2) K/mcL PT 10.9 (9.4-12.1) Seconds INR 1.0 APTT 34.8 (26.0-36.0) Seconds D-Dimer 460 (0-500) ng/mLFEU Sample Site ABG pH (7.32-7.45) pH Units ABG pCO2 (35-45) mmHg ABG pO2 (85-104) mmHg ABG HCO3 (21-27) mEq/L ABG Total CO2 (20-26) mEq/L ABG O2 Saturation (95-98) % ABG Base Excess (-2 to 3) mEq/L Keo Test Respiration Rate O2 Delivery Device Inspired O2 (1-15=lpm [id number]=%) PEEP cm H2O Pressure Support cm H2O Sodium 143 (136-145) mEq/L Potassium 4.3 (3.5-5.1) mEq/L Chloride 107 (98-107) mEq/L Carbon Dioxide 24 (23-29) mEq/L BUN 13 (8-23) mg/dL Creatinine 0.75 (0.60-1.20) mg/dL Est GFR ( Amer) > 60 (> 60) Est GFR (Non-Af Amer) > 60 (> 60) BUN/Creatinine Ratio 17 (6-26) Glucose 124 H (70-105) mg/dL Calculated Osmolality 298 (280-300) Calcium 9.2 (8.6-10.3) mg/dL Troponin I < 0.03 (< 0.04) ng/mL 09/18/18 Range/Units 00:12 WBC (4.3-11.1) K/mcL RBC (3.82-4.97) M/mcL Hgb (11.5-15.4) g/dL Hct (35.3-44.9) % MCV (83.0-100.0) fL MCH (28.0-33.3) pg MCHC (31.6-35.5) g/dL RDW (11.5-14.5) % Plt Count (140-400) K/mcL MPV (9.4-12.4) fL Immature Gran % (0-4) % Seg Neutrophils % % Lymphocytes % % Monocytes % % Eosinophils % % Basophils % % Neutrophils # (1.6-8.9) K/mcL Lymphocytes # (0.6-4.6) K/mcL Monocytes # (0.0-1.3) K/mcL Eosinophils # (0.0-0.6) K/mcL Basophils # (0.0-0.2) K/mcL PT (9.4-12.1) Seconds INR APTT (26.0-36.0) Seconds D-Dimer (0-500) ng/mLFEU Sample Site R Radial ABG pH 7.35 (7.32-7.45) pH Units ABG pCO2 43 (35-45) mmHg ABG pO2 118 H (85-104) mmHg ABG HCO3 24 (21-27) mEq/L ABG Total CO2 25 (20-26) mEq/L ABG O2 Saturation 98 (95-98) % ABG Base Excess -2 (-2 to 3) mEq/L Keo Test Positive Respiration Rate 12 O2 Delivery Device BiPAP Inspired O2 36.0 (1-15=lpm [id number]=%) PEEP 12 cm H2O Pressure Support 6 cm H2O Sodium (136-145) mEq/L Potassium (3.5-5.1) mEq/L Chloride (98-107) mEq/L Carbon Dioxide (23-29) mEq/L BUN (8-23) mg/dL Creatinine (0.60-1.20) mg/dL Est GFR ( Amer) (> 60) Est GFR (Non-Af Amer) (> 60) BUN/Creatinine Ratio (6-26) Glucose (70-105) mg/dL Calculated Osmolality (280-300) Calcium (8.6-10.3) mg/dL Troponin I (< 0.04) ng/mL - Radiology Data Radiology results reviewed: Yes I reviewed the patient's radiology results. - EKG Data EKG attestation: Yes I reviewed and interpreted this EKG. EKG results narrative: Twelve-lead EKG performed at 20 2:12 PM. Ordered, reviewed and interpreted by ED physician shows sinus tachycardia rate of 104. Normal axis. Good hour progression across the precordium. No acute ischemic changes.
[2018-09-17 22:37] LABS: Basophils % 0.1 %; Hematocrit 41.3 % (35.3-44.9); Hemoglobin 13.8 g/dL (11.5-15.4); Immature Granulocytes % 0.4 % (0-4); Lymphocytes # 0.6 K/mcL (0.6-4.6); Lymphocytes % 3.9 %; Mean Corpuscular HGB Conc 33.4 g/dL (31.6-35.5); Mean Corpuscular Hemoglobin 30.1 pg (28.0-33.3); Mean Platelet Volume 9.2 fL (9.4-12.4); Monocytes % 6.8 %; Neutrophils # 13.2 K/mcL (1.6-8.9); Platelet Count 241 K/mcL (140-400); Red Blood Count 4.59 M/mcL (3.82-4.97); Segmented Neutrophils % 88.8 %
[2018-09-17 22:56] LABS: BUN/Creatinine Ratio 17 (6-26); Blood Urea Nitrogen 13 mg/dL (8-23); Calcium 9.2 mg/dL (8.6-10.3); Carbon Dioxide 24 mEq/L (23-29); Chloride 107 mEq/L (98-107); Glucose 124 mg/dL (70-105); Osmolality,Calculated 298 (280-300); Potassium 4.3 mEq/L (3.5-5.1); Sodium 143 mEq/L (136-145); Troponin I < 0.03 ng/mL (< 0.04); eGFR For Non-African Americans > 60 (> 60)
[2018-09-17 23:23] LABS: Prothrombin Time 10.9 Seconds (9.4-12.1)
[2018-09-17 23:26] LABS: Activated Partial Thrombo Time 34.8 Seconds (26.0-36.0)
[2018-09-18 00:14] LABS: ABG Base Excess -2 mEq/L (-2 to 3); ABG HCO3 24 mEq/L (21-27); ABG Oxygen Saturation 98 % (95-98); ABG PCO2 43 mmHg (35-45); ABG PH 7.35 pH Units (7.32-7.45); ABG PO2 118 mmHg (85-104); ABG TCO2 25 mEq/L (20-26); Blood Gas PEEP 12 cm H2O; Blood Gas Pressure Support 6 cm H2O; Blood Gas Respiration Rate 12
[2018-09-18] MEDS ORDERED: MethylPREDNISolone 40 MG/ML VIAL IVP ONE (01:40)
[2018-09-18] MEDS ORDERED: Naloxone 0.4 MG/ML INJ IVP PRN (01:40)
[2018-09-18] MEDS: 0.9 % Sodium Chloride 1,000 ML IVC SCH ×2 (02:32→16:35)
[2018-09-18] MEDS: Ipratropium/Albuterol Neb 3 ML IH SCH ×6 (04:28→23:52)
[2018-09-18] MEDS ORDERED: ALPRAZolam 0.5 MG TABLET PO PRN (06:37)
[2018-09-18] MEDS: methylPREDNISolone 125 MG/2 ML VIAL IVP SCH ×2 (10:13→16:35)
[2018-09-18] MEDS: cefTRIAXone 1,000 MG in Water for inj. (sterile) 20 ML 10 ML IVP SCH (10:14)
[2018-09-18] MEDS: Azithromycin 500 MG in D5% in Water 250 ML IVPB SCH (10:16)
[2018-09-18] MEDS: Budesonide/Formoterol 160/4.5 1 PUFF INH IH SCH ×2 (10:19→20:57)
--- NOTE | 2018-09-18 14:32 | Internal Med History&Physical ---
Date of Encounter: 09/18/18 Time of Encounter: 14:15 Assessment and Plan (1) Acute exacerbation of chronic obstructive airways disease Current visit: Yes Status: Acute WBC had risen to 14.9 on blood work in emergency room last evening. She was started on IV antibiotics and IV steroids. Lactobacillus will be added. Further workup will be done as needed. Internal Medicine - H&P: HPI Chief complaint: Dyspnea Admitted From: Emergency Dept Plans for Post Hospital Care: Home History of present illness: Ms. Paiz is a 67 year old female came back to emergency room a few hours after being discharged from [facility] observation bed for exacerbation of COPD. She stated shortly after arriving home her dyspnea worsened. She became more anx ious so returned emergency room. She was readmitted with diagnosis of exacerbation of COPD. She states her breathing is minimally changed since being in emergency room last evening. Her respiratory history is significant for smoking since age 15 up to one pack per day. She reports PFTs done approximately 2010 showed COPD. She does not use home oxygen and has not been tested for sleep apnea. Chest CT May 2018 did not show worrisome pathology. Past Med Surg Social Fam HX - Past Medical History Medical history: asthma, COPD, GERD Psychiatric history: no psych history - Past Surgical History Additional surgical history: Tubal ligation, Gum surgery 6 months ago - Social History Smoking Status: Current every day smoker Smokeless Tobacco Status: No Alcohol use: none Drug use: none - Family History Father Living Status: Hx Family Cardiac Disorders: Yes ([place]) Brother Living Status: Hx Family Cardiac Disorders: Yes ([place]) Internal Medicine - H&P: Meds Albuterol Inhaler 2 puff IN Q4H PRN 11/05/15 [History] Albuterol Sulfate [Albuterol Inhaler] 2 puff IH QID 2 Days inhaler 11/05/15 [Rx] Singulair 10 mg PO DAILY 11/05/15 [History] Symbicort 160/4.5 1 puff IH BID 11/05/15 [History] Ipratropium Neb [Atrovent Neb] 0.5 mg IH Q6HR #30 vial.neb 02/15/16 [Rx] Omeprazole 20 mg PO DAILY 10/30/16 [History] Allergy/AdvReac Type Severity Reaction Status Date / Time No Known Allergies Allergy Verified 05/08/18 18:46 All Systems PM: A 10-system review of systems was performed and is negative for pertinent findings except as documented above in the HPI. Review of systems: Review of systems from her [facility] hospitalization yesterday were reviewed and revised as below. Gen.: Her weight has increased minimally from 59.874 kg on 05/08/2018 to present weight of 61.235 kg Cardiovascular: She denies hypertension NC heart failure angina DVT or pulmonary embolus. She states an EST 2015 showed no ischemia. Respiratory: As per history of present illness GI: She denies disorders of her liver gallbladder or exocrine pancreas : She denies hematuria dysuria or kidney stones Neurologic: She denies large distribution strokes or seizures. Endocrine: She denies diabetes thyroid disease or hyperlipidemia Hematology/oncology: She denies blood disorders cancers or anemia Psychiatric: She has seasonal affective disorder. She denies other mental health diagnoses. [place] skeletal: She has DJD but denies gout or other bone joint or muscle disorders. - Constitutional Vitals: Temp Pulse Resp BP Pulse Ox 97.9 F 89 23 159/90 99 09/18/18 10:29 09/18/18 10:29 09/18/18 10:29 09/18/18 10:29 09/18/18 10:29 Exam: Gen.: She is a well-developed well-nourished female lying in bed who appears dyspneic at rest HEENT: Head is atraumatic and normocephalic. Eyes: EOMI. There is no scleral icterus. Mouth: Mucosa is moist. Neck: There is no thyromegaly or adenopathy noted. Heart: Regular without murmurs gallops or ectopics Lungs: She has diminished breath sounds diffusely. There is prolonged expiratory phase and mild diffuse wheezing. Abdomen: Soft and nontender. No masses or guarding are noted. Extreme is: There is no peripheral edema. Neurologic: Mental status: She is talkative and a good historian. Cranial nerves: Smile is symmetric. Forehead wrinkles bilaterally. Tongue protrudes midline. EOMI. Motor: Grossly intact without further formal testing done Skin: Warm and dry Internal Med - H&P Results - Labs CBC & Chem 7: 09/17/18 22:27 09/17/18 22:27 Labs: Short CBC 09/17/18 Range/Units 22:27 WBC 14.9 H D (4.3-11.1) K/mcL Hgb 13.8 (11.5-15.4) g/dL Hct 41.3 (35.3-44.9) % Plt Count 241 (140-400) K/mcL Neutrophils # 13.2 H (1.6-8.9) K/mcL BMP 09/17/18 22:27 Sodium 143 Potassium 4.3 Chloride 107 Carbon Dioxide 24 BUN 13 Creatinine 0.75 Glucose 124 H Calcium 9.2 Cardiac Enzymes 09/17/18 09/18/18 09/18/18 Range/Units 22:27 02:48 07:47 Troponin I < 0.03 < 0.03 < 0.03 (< 0.04) ng/mL 09/18/18 Range/Units 13:46 Troponin I < 0.03 (< 0.04) ng/mL - ABG Interpretation ABG results: 09/18/18 00:12 ABG pH 7.35 ABG pCO2 43 ABG pO2 118 H ABG HCO3 24 ABG Total CO2 25 ABG O2 Saturation 98 ABG Base Excess -2 - Impressions ITS Impressions Chest X-Ray 09/17/18 22:16 IMPRESSION: No acute process. D/ / Medardo Pulliam MD / Medardo Pulliam MD Interpreting Provider: Medardo Pulliam MD
[2018-09-19] MEDS: methylPREDNISolone 125 MG/2 ML VIAL IVP SCH ×3 (00:19→17:13)
--- NOTE | 2018-09-19 03:27 | Electrocardiograph Report ---
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
[2018-09-19] MEDS: Ipratropium/Albuterol Neb 3 ML IH SCH ×5 (04:28→21:09)
[2018-09-19] MEDS: Azithromycin 500 MG in D5% in Water 250 ML IVPB SCH (08:02)
[2018-09-19] MEDS: cefTRIAXone 1,000 MG in Water for inj. (sterile) 20 ML 10 ML IVP SCH (08:03)
[2018-09-19] MEDS: Budesonide/Formoterol 160/4.5 1 PUFF INH IH SCH ×2 (08:46→21:09)
[2018-09-19 11:43] LABS: Basophils % 0.1 %; Hematocrit 40.3 % (35.3-44.9); Hemoglobin 13.2 g/dL (11.5-15.4); Immature Granulocytes % 0.5 % (0-4); Lymphocytes # 0.8 K/mcL (0.6-4.6); Lymphocytes % 4.7 %; Mean Corpuscular HGB Conc 32.8 g/dL (31.6-35.5); Mean Corpuscular Volume 91.6 fL (83.0-100.0); Mean Platelet Volume 9.6 fL (9.4-12.4); Monocytes # 1.1 K/mcL (0.0-1.3); Monocytes % 6.2 %; Neutrophils # 15.5 K/mcL (1.6-8.9); Platelet Count 225 K/mcL (140-400); Red Cell Distribution Width 13.1 % (11.5-14.5); Segmented Neutrophils % 88.5 %
--- NOTE | 2018-09-19 15:36 | Internal Med Progress Note ---
Date of Encounter: 09/19/18 Time of Encounter: 15:20 - Assessment and plan (1) Acute exacerbation of chronic obstructive airways disease Current Visit: Yes Status: Acute Assessment and plan: September 19. Continue IV antibiotics and IV steroids with lactobacillus. Recheck labs in a.m. - Subjective Interval history: September 19. She has no new complaints. She does not feel improved. She has significant dyspnea on exertion. - Constitutional Vitals: Temp Pulse Resp BP Pulse Ox 98.7 F 96 18 116/69 90 09/19/18 10:00 09/19/18 10:00 09/19/18 12:52 09/19/18 10:00 09/19/18 12:52 Exam: She is resting comfortably in bed and appears in no acute distress. Her affect is cheerful. She is wearing oxygen by nasal cannula. I reviewed her medications and lab results. Internal Medicine: Result - Labs CBC & Chem 7: 09/19/18 11:31 09/17/18 22:27 Labs: Short CBC 09/19/18 Range/Units 11:31 WBC 17.5 H (4.3-11.1) K/mcL Hgb 13.2 (11.5-15.4) g/dL Hct 40.3 (35.3-44.9) % Plt Count 225 (140-400) K/mcL Neutrophils # 15.5 H (1.6-8.9) K/mcL - ABG Interpretation ABG results: ABG ABG pH 7.35 pH Units (7.32-7.45) 09/18/18 00:12 ABG pCO2 43 mmHg (35-45) 09/18/18 00:12 ABG pO2 118 mmHg (85-104) H 09/18/18 00:12 ABG O2 Saturation 98 % (95-98) 09/18/18 00:12 PT/INR, D-dimer PT 10.9 Seconds (9.4-12.1) 09/17/18 22:27 D-Dimer 460 ng/mLFEU (0-500) 09/17/18 22:27 Consult Discharge Plan - Plan Referrals: Mayra Chino MD [Primary Care Provider] - 1 week
[2018-09-20] MEDS: methylPREDNISolone 125 MG/2 ML VIAL IVP SCH ×2 (00:26→09:53)
[2018-09-20] MEDS: Ipratropium/Albuterol Neb 3 ML IH SCH ×4 (00:55→12:55)
[2018-09-20] MEDS ORDERED: *HR* Enoxaparin 40 MG/0.4 ML SYRINGE SQ SCH (06:00)
[2018-09-20 06:53] LABS: Basophils % 0.1 %; Hematocrit 37.9 % (35.3-44.9); Hemoglobin 12.4 g/dL (11.5-15.4); Immature Granulocytes % 0.6 % (0-4); Lymphocytes # 1.1 K/mcL (0.6-4.6); Mean Corpuscular HGB Conc 32.7 g/dL (31.6-35.5); Mean Corpuscular Hemoglobin 30.1 pg (28.0-33.3); Mean Platelet Volume 9.4 fL (9.4-12.4); Monocytes # 0.5 K/mcL (0.0-1.3); Monocytes % 3.1 %; Neutrophils # 13.8 K/mcL (1.6-8.9); Platelet Count 228 K/mcL (140-400); Red Blood Count 4.12 M/mcL (3.82-4.97); Segmented Neutrophils % 89.2 %
[2018-09-20 07:18] LABS: Alanine Aminotransferase 18 Units/L (7-52); Albumin 3.5 g/dL (3.5-5.7); Albumin/Globulin Ratio 1.3 (1.1-2.2); Alkaline Phosphatase 51 Units/L (34-104); Aspartate Amino Transferase 22 Units/L (13-39); BUN/Creatinine Ratio 38 (6-26); Bilirubin,Total 0.4 mg/dL (0.3-1.0); Blood Urea Nitrogen 24 mg/dL (8-23); Calcium 9.1 mg/dL (8.6-10.3); Carbon Dioxide 31 mEq/L (23-29); Chloride 104 mEq/L (98-107); Globulin 2.7 g/dL (2.4-3.5); Glucose 120 mg/dL (70-105); Osmolality,Calculated 297 (280-300); Sodium 141 mEq/L (136-145); Total Protein 6.2 g/dL (6.4-8.9); eGFR For Non-African Americans > 60 (> 60)
[2018-09-20] MEDS: Budesonide/Formoterol 160/4.5 1 PUFF INH IH SCH (08:56)
[2018-09-20] MEDS: Azithromycin 500 MG in D5% in Water 250 ML IVPB SCH (09:53)
[2018-09-20] MEDS: cefTRIAXone 1,000 MG in Water for inj. (sterile) 20 ML 10 ML IVP SCH (09:54)
--- NOTE | 2018-09-20 10:36 | Discharge Summary ---
Orders not resulted at time of discharge: Pending orders 09/18/18 02:00 Culture,Sputum with Gram Stain [RM] Routine 09/20/18 05:50 Respiratory Infection Panel [MOLMIC] Routine Date of Encounter: 09/20/18 Time of Encounter: 10:25 - Discharge Diagnosis (1) Acute exacerbation of chronic obstructive airways disease Priority: Primary Status: Acute Hospital course: Ms. Paiz is a 67 year old female who came back to emergency room a few hours after being discharged from [facility] observation bed for exacerbation of COPD. She stated shortly after arriving home her dyspnea worsened. She became more anxious so returned to emergency room. She was readmitted with diagnosis of exacerbation of COPD. Initial orders were written by the emergency room physician. I saw her on September 18 and performed the history and physical. She was started on IV Rocephin and Zithromax with lactobacillus and Solu-Medrol. WBC yahir to 17.5 on September 19 but decreased to 15.5 on September 20. When I saw her on September 20 she stated she felt improved and stable for discharge home. She will continue with antibiotics and probiotic with lactobacillus and prednisone for 3 additional days at discharge. Respiratory infection panel was drawn with results pending at time of discharge. Room air oximetry showed saturation decreasing to 88% while at rest. Patient became dyspneic and oxygen was reapplied for comfort and safety. She will be discharged home with oxygen at 2 L/m by nasal cannula 27/01 with portable gas and concentrator. Qualifying diagnosis is COPD with hypoxemia not remedied by use of bronchodilators. I encouraged herto become a nonsmoker. She will follow with her PCP Dr. Chino within 1 week. - Time Spent with Patient Total time spent providing and/or coordinating discharge services: - Discharge Medications Prescriptions: New Cefuroxime PO [Ceftin] 500 mg PO Q12HR #6 tablet Azithromycin [Zithromax] 250 mg PO DAILY #3 tablet Lactobacillus [Culturelle] 1 each PO BID #6 cap.sprink predniSONE [PredniSONE] 20 mg PO BIDWM #6 tablet Continue Symbicort 160/4.5 1 puff IH BID Singulair 10 mg PO DAILY Albuterol Inhaler 2 puff IN Q4H PRN PRN Reason: Wheezing Albuterol Sulfate [Albuterol Inhaler] 2 puff IH QID 2 Days inhaler Ipratropium Neb [Atrovent Neb] 0.5 mg IH Q6HR #30 vial.neb Omeprazole 20 mg PO DAILY Home Medications: Albuterol Inhaler 2 puff IN Q4H PRN 11/05/15 [History] Albuterol Sulfate [Albuterol Inhaler] 2 puff IH QID 2 Days inhaler 11/05/15 [Rx] Singulair 10 mg PO DAILY 11/05/15 [History] Symbicort 160/4.5 1 puff IH BID 11/05/15 [History] Ipratropium Neb [Atrovent Neb] 0.5 mg IH Q6HR #30 vial.neb 02/15/16 [Rx] Omeprazole 20 mg PO DAILY 10/30/16 [History] Azithromycin [Zithromax] 250 mg PO DAILY #3 tablet 09/20/18 [Rx] Cefuroxime PO [Ceftin] 500 mg PO Q12HR #6 tablet 09/20/18 [Rx] Lactobacillus [Culturelle] 1 each PO BID #6 cap.sprink 09/20/18 [Rx] predniSONE [PredniSONE] 20 mg PO BIDWM #6 tablet 09/20/18 [Rx] Allergies/Adverse Reactions: Allergy/AdvReac Type Severity Reaction Status Date / Time No Known Allergies Allergy Verified 05/08/18 18:46 Date of admission: 09/19/18 15:34 Primary care physician: Mayra Chino - Constitutional Vitals: Temp Pulse Resp BP Pulse Ox 97.5 F L 76 16 134/74 97 09/20/18 07:11 09/20/18 07:11 09/20/18 08:56 09/20/18 07:11 09/20/18 10:23 - Patient Status Disposition: Home, Self-Care Condition: Fair - Discharge Instructions Follow Up With: Mayra Chino MD [Primary Care Provider] - 1 week - Diet and Activity Activity: resume usual activities as tolerated, wear oxygen at all times Diet: advance to your usual diet
[2018-09-20 11:14] VITALS: BP 126/74
[2018-09-20 12:47] LABS: Adenovirus Not Detected (Not Detect); Coronavirus 229E Not Detected (Not Detect); Coronavirus HKU1 Not Detected (Not Detect); Coronavirus NL63 Not Detected (Not Detect); Coronavirus OC43 Not Detected (Not Detect); Human Metapneumovirus Not Detected (Not Detect); Human Rhinovirus/Enterovirus Not Detected (Not Detect)
[2018-09-20 12:48] LABS: Bordetella Pertussis Not Detected (Not Detect); Chlamydophila pneumoniae Not Detected (Not Detect); Influenza A Subtype 2009 H1 Not Detected (Not Detect); Influenza A Untypeable Not Detected (Not Detect); Influenza B Not Detected (Not Detect); Mycoplasma pneumoniae Not Detected (Not Detect); Parainfluenza Virus 1 Not Detected (Not Detect); Parainfluenza Virus 2 Not Detected (Not Detect); Parainfluenza Virus 3 Not Detected (Not Detect); Parainfluenza Virus 4 Not Detected (Not Detect); Respiratory Syncytial Virus Not Detected (Not Detect)
== END 2018-09-20 15:18 | disposition home or self-care (01) | DRG 192 ==
LOC: EMEROOPIK 22:06 → INPPIK 22:06
PROVIDERS: ADMIT Internal Medicine; ATTEND Internal Medicine